=== PATIENT | male | born 1955 | race Native Hawaiian/Other Pacific Islander ===

== ENCOUNTER 2017-04-29 18:19 | Observation (INO) | payer MEDICAID ==
[2017-04-29 18:25] VITALS: BP 133/74; PULSE 105; RESP 98; TEMP 98.5; O2SAT 98
[2017-04-29 19:41] LABS: BASO % 0.2 % (0.0-2.0); EOS # 0.2 K/uL (0.0-0.7); EOS % 2.7 % (0.0-4.0); HEMATOCRIT 45.8 % (35.0-51.0); LYMPH # 2.6 K/uL (1.0-4.3); LYMPH % 38.2 % (20.0-40.0); MEAN CORPUSCULAR HEMOGLOBIN 34.2 pg (27.0-31.0); MEAN CORPUSCULAR HGB CONC 34.6 g/dL (33.0-37.0); MEAN PLATELET VOLUME 7.6 fl (7.2-11.7); MONO # 0.5 K/uL (0.0-0.8); MONO % 7.1 % (0.0-10.0); NEUT # 3.5 K/uL (1.8-7.0); NEUT % 51.8 % (50.0-75.0); NRBC % 0.1 % (0.0-0.0); RED CELL DISTRIBUTION WIDTH 13.3 % (11.5-14.5); WHITE BLOOD COUNT 6.8 K/uL (4.8-10.8)
[2017-04-29 19:51] LABS: ALB/GLOB RATIO 1.1 (1.0-2.1); ALCOHOL SERUM 247 mg/dl (0-10); ALKALINE PHOSPHATASE 82 U/L (38-126); ALT/SGPT 28 U/L (21-72); AST/SGOT 36 U/L (17-59); BILIRUBIN,TOTAL 0.5 mg/dl (0.2-1.3); BLOOD UREA NITROGEN 10 mg/dl (9-20); CALCIUM 9.1 mg/dL (8.4-10.2); CARBON DIOXIDE 23 mmol/L (22-30); CHLORIDE 101 mmol/L (98-107); GFR AFRICAN-AMERICAN > 60; GLUCOSE,RANDOM 145 mg/dL (75-110); POTASSIUM 4.3 MMOL/L (3.6-5.0); SODIUM 141 mmol/l (132-148); TOTAL PROTEIN 9.6 G/DL (6.3-8.2)
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
--- NOTE | 2017-04-30 00:45 | ED PDOC ---
- Laboratory Results Result Diagrams: 04/29/17 19:25 04/29/17 19:25 - ECG O2 Sat by Pulse Oximetry: 98 Pulse Ox Interpretation: Normal Medical Decision Making Medical Decision Makin:00 Patient is signed out to me by Betsy Marley MD pending sobriety, reevaluation, and final disposition. 300 Patient awake alert, walking with steady gait, daughter at bedside to take patient home. Scribe Attestation: Documented by Monica Leblanc, acting as a scribe for Rj Lombardi MD. Provider Scribe Attestation: All medical record entries made by the Scribe were at my direction and personally dictated by me. I have reviewed the chart and agree that the record accurately reflects my personal performance of the history, physical exam, medical decision making, and the department course for this patient. I have also personally directed, reviewed, and agree with the discharge instructions and disposition. Disposition - Clinical Impression Clinical Impression: Alcohol abuse - POA Present On Arrival: None - Disposition Disposition: Routine/Home Disposition Time: 03:00 Condition: IMPROVED
[2017-04-30] MEDS ORDERED: Albuterol-Ipratrop 3 mg / 0.5 (3 ml) UD INH STA (01:30)
== END 2017-04-30 03:04 | disposition home or self-care (01) ==
LOC: H.ER 18:19 → H.EROBSV 19:23
PROVIDERS: ADMIT Emergency Medicine; ATTEND Emergency Medicine
DX: F10.129 Alcohol abuse with intoxication, unspecified (principal); Y90.8 Blood alcohol level of 240 mg/100 ml or more; J44.9 Chronic obstructive pulmonary disease, unspecified; F17.200 Nicotine dependence, unspecified, uncomplicated

== ENCOUNTER 2018-05-19 08:12 | Observation (INO) | payer MEDICAID, MEDICARE ==
[2018-05-19 08:23] VITALS: BMI 20.2
[2018-05-19] MEDS ORDERED: Albuterol-Ipratrop 3 mg / 0.5 (3 ml) UD ONE ×2 (08:57)
[2018-05-19] MEDS ORDERED: Albuterol-Ipratrop 3 mg / 0.5 (3 ml) UD INH STA ×3 (09:03→09:06)
[2018-05-19] MEDS ORDERED: Sodium Chloride 0.9% 1,000 ML IV STA (09:06)
[2018-05-19] MEDS ORDERED: cefTRIAXone (Rocephin) 1 gm Inj ONE (09:18)
[2018-05-19 09:20] LABS: VENOUS BLOOD GAS BASE EXCESS 4.2 mmol/L (0.0-2.0); VENOUS BLOOD GAS PCO2 40 mmHg (40-60); VENOUS BLOOD GAS PO2 29 mm/Hg (30-55); VENOUS BLOOD PH 7.46 (7.32-7.43)
[2018-05-19 09:51] LABS: BASO % 0.5 % (0.0-2.0); EOS # 0.1 K/uL (0.0-0.7); EOS % 1.1 % (0.0-4.0); HEMOGLOBIN 15.5 g/dL (12.0-18.0); LYMPH # 2.2 K/uL (1.0-4.3); LYMPH % 21.6 % (20.0-40.0); MEAN CELL VOLUME 101.4 fl (80.0-94.0); MEAN CORPUSCULAR HEMOGLOBIN 35.1 pg (27.0-31.0); MEAN CORPUSCULAR HGB CONC 34.6 g/dL (33.0-37.0); MEAN PLATELET VOLUME 9.1 fl (7.2-11.7); MONO # 1.6 K/uL (0.0-0.8); MONO % 16.2 % (0.0-10.0); NEUT # 6.1 K/uL (1.8-7.0); NEUT % 60.6 % (50.0-75.0); NRBC % 0.2 % (0.0-0.0); RBC 4.42 Mil/uL (4.40-5.90); RED CELL DISTRIBUTION WIDTH 13.6 % (11.5-14.5)
[2018-05-19 09:59] LABS: ALB/GLOB RATIO 0.9 (1.0-2.1); ALBUMIN 4.5 g/dL (3.5-5.0); ALT/SGPT 25 U/L (21-72); AST/SGOT 39 U/L (17-59); BLOOD UREA NITROGEN 13 mg/dl (9-20); CALCIUM 9.6 mg/dL (8.4-10.2); GFR AFRICAN-AMERICAN > 60; GFR NON-AFRICAN AMERICAN > 60
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
--- NOTE | 2018-05-19 10:21 | RAD ---
HISTORY: [email or web address] COMPARISON: Chest radiographs 07/17/2015. TECHNIQUE: Chest PA and lateral FINDINGS: LUNGS: Fibrotic strands are reiterated at the left base without significant change taking differences in technique into account. Left lesser pleural thickening in calcification are reiterated as well. No acute infiltrate bilaterally. Trace scarring at the right base is noted. PLEURA: No significant pleural effusion identified. No pneumothorax apparent. CARDIOVASCULAR: Normal. OSSEOUS STRUCTURES: No significant abnormalities. VISUALIZED UPPER ABDOMEN: Normal. OTHER FINDINGS: None. IMPRESSION: Sclerotic changes are reiterated at the left base including partial calcification and thickening of the pleura. Trace right basilar fibrotic changes reiterated as well. No acute infiltrate pleural effusion or pneumothorax identified bilaterally.
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
[2018-05-19] MEDS ORDERED: Albuterol-Ipratrop 3 mg / 0.5 (3 ml) UD INH SCH (13:45)
[2018-05-19] MEDS ORDERED: Sodium Chloride 3% for Inhalation 4 ML VIAL.NEB IH PRN (14:32)
[2018-05-19] MEDS: levoFLOXacin 750 MG TAB PO SCH (15:00)
[2018-05-19] MEDS: Sodium Chloride 0.9% 1,000 ML IV SCH (15:00)
[2018-05-19] MEDS: Albuterol-Ipratrop 3 mg / 0.5 (3 ml) UD INH SCH ×3 (15:59→19:32)
[2018-05-19] MEDS ORDERED: methylPREDNISolone 60 MG in Sodium Chloride 0.9% 50 ML IVPB SCH (17:00)
[2018-05-19] MEDS: Lactobacillus Acidophilus 500 MU Cap PO SCH (18:34)
[2018-05-20] MEDS: Albuterol-Ipratrop 3 mg / 0.5 (3 ml) UD INH SCH ×6 (00:08→19:07)
[2018-05-20] MEDS: Sodium Chloride 0.9% 1,000 ML IV SCH (03:00)
[2018-05-20 07:21] LABS: HEMOGLOBIN 13.1 g/dL (12.0-18.0); LYMPH # 0.7 K/uL (1.0-4.3); LYMPH % 8.4 % (20.0-40.0); MEAN CELL VOLUME 102.3 fl (80.0-94.0); MEAN CORPUSCULAR HEMOGLOBIN 34.6 pg (27.0-31.0); MEAN CORPUSCULAR HGB CONC 33.8 g/dL (33.0-37.0); MEAN PLATELET VOLUME 8.5 fl (7.2-11.7); MONO # 0.3 K/uL (0.0-0.8); MONO % 3.6 % (0.0-10.0); NEUT # 7.2 K/uL (1.8-7.0); NRBC % 0.1 % (0.0-0.0); PLATELET COUNT 265 K/uL (130-400); RBC 3.78 Mil/uL (4.40-5.90); RED CELL DISTRIBUTION WIDTH 13.6 % (11.5-14.5); WHITE BLOOD COUNT 8.2 K/uL (4.8-10.8)
[2018-05-20 07:27] LABS: ALB/GLOB RATIO 0.9 (1.0-2.1); ALBUMIN 3.8 g/dL (3.5-5.0); ALT/SGPT 20 U/L (21-72); AST/SGOT 29 U/L (17-59); BLOOD UREA NITROGEN 11 mg/dl (9-20); CALCIUM 9.1 mg/dL (8.4-10.2); GFR AFRICAN-AMERICAN > 60; GFR NON-AFRICAN AMERICAN > 60
[2018-05-20] MEDS: Lactobacillus Acidophilus 500 MU Cap PO SCH ×2 (08:44→17:07)
[2018-05-20] MEDS: levoFLOXacin 750 MG TAB PO SCH (08:45)
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
[2018-05-20 11:40] LABS: BANDS 2 % (0-2); LYMPHOCYTE 9 % (20-50); MONOCYTE 2 % (0-10); NEUTROPHIL 87 % (42-75); PLATELET ESTIMATE NORMAL (NORMAL); TOTAL CELLS COUNTED 100
[2018-05-20 19:16] LABS: FOLATE 12.2 ng/mL
[2018-05-20] MEDS ORDERED: Enoxaparin 40 mg Syringe SC SCH (22:00)
[2018-05-21] MEDS: Albuterol-Ipratrop 3 mg / 0.5 (3 ml) UD INH SCH ×5 (00:40→15:06)
[2018-05-21 04:57] VITALS: RESP 18
[2018-05-21 05:45] LABS: BASO % 0.1 % (0.0-2.0); HEMOGLOBIN 12.9 g/dL (12.0-18.0); LYMPH # 0.8 K/uL (1.0-4.3); LYMPH % 5.9 % (20.0-40.0); MEAN CELL VOLUME 102.3 fl (80.0-94.0); MEAN CORPUSCULAR HEMOGLOBIN 34.4 pg (27.0-31.0); MEAN CORPUSCULAR HGB CONC 33.6 g/dL (33.0-37.0); MEAN PLATELET VOLUME 8.5 fl (7.2-11.7); MONO # 0.5 K/uL (0.0-0.8); MONO % 3.5 % (0.0-10.0); NEUT # 11.9 K/uL (1.8-7.0); NEUT % 90.5 % (50.0-75.0); PLATELET COUNT 274 K/uL (130-400); RBC 3.74 Mil/uL (4.40-5.90); RED CELL DISTRIBUTION WIDTH 13.7 % (11.5-14.5); WHITE BLOOD COUNT 13.2 K/uL (4.8-10.8)
[2018-05-21 06:14] LABS: BLOOD UREA NITROGEN 14 mg/dl (9-20); CALCIUM 9.3 mg/dL (8.4-10.2); GFR AFRICAN-AMERICAN > 60; GFR NON-AFRICAN AMERICAN > 60
[2018-05-21] MEDS ORDERED: Potassium Chloride 20 mEq ER Tab PO STA (06:28)
[2018-05-21] MEDS: levoFLOXacin 750 MG TAB PO SCH (08:19)
[2018-05-21] MEDS: Lactobacillus Acidophilus 500 MU Cap PO SCH (08:19)
--- NOTE | 2018-05-21 09:12 | CP.PCM.DIS ---
Provider - Provider Date of Admission: 05/19/18 12:01 Attending physician: Karen Zhu MD Time Spent in preparation of Discharge (in minutes): 20 Hospital Course - Lab Results Lab Results: Micro Results 05/19/18 13:18 Blood Blood Culture - Preliminary NO GROWTH AFTER 24 HOURS 05/19/18 13:18 Blood Blood Culture - Preliminary NO GROWTH AFTER 24 HOURS Most Recent Lab Values WBC 13.2 K/uL (4.8-10.8) H D 05/21/18 04:20 RBC 3.74 Mil/uL (4.40-5.90) L 05/21/18 04:20 Hgb 12.9 g/dL (12.0-18.0) 05/21/18 04:20 Hct 38.3 % (35.0-51.0) 05/21/18 04:20 MCV 102.3 fl (80.0-94.0) H 05/21/18 04:20 MCH 34.4 pg (27.0-31.0) H 05/21/18 04:20 MCHC 33.6 g/dL (33.0-37.0) 05/21/18 04:20 RDW 13.7 % (11.5-14.5) 05/21/18 04:20 Plt Count 274 K/uL (130-400) 05/21/18 04:20 MPV 8.5 fl (7.2-11.7) 05/21/18 04:20 Neut % (Auto) 90.5 % (50.0-75.0) H 05/21/18 04:20 Lymph % (Auto) 5.9 % (20.0-40.0) L 05/21/18 04:20 [place] % (Auto) 3.5 % (0.0-10.0) 05/21/18 04:20 Eos % (Auto) 0.0 % (0.0-4.0) 05/21/18 04:20 Baso % (Auto) 0.1 % (0.0-2.0) 05/21/18 04:20 Neut # (Auto) 11.9 K/uL (1.8-7.0) H 05/21/18 04:20 Lymph # (Auto) 0.8 K/uL (1.0-4.3) L 05/21/18 04:20 Benson # (Auto) 0.5 K/uL (0.0-0.8) 05/21/18 04:20 Eos # (Auto) 0.0 K/uL (0.0-0.7) 05/21/18 04:20 Baso # (Auto) 0.0 K/uL (0.0-0.2) 05/21/18 04:20 Neutrophils % (Manual) 87 % (42-75) H 05/20/18 07:00 Band Neutrophils % 2 % (0-2) 05/20/18 07:00 Lymphocytes % (Manual) 9 % (20-50) L 05/20/18 07:00 Monocytes % (Manual) 2 % (0-10) 05/20/18 07:00 Platelet Estimate Normal (NORMAL) 05/20/18 07:00 Macrocytosis (manual) Slight 05/20/18 07:00 pO2 29 mm/Hg (30-55) L 05/19/18 09:13 VBG pH 7.46 (7.32-7.43) H 05/19/18 09:13 VBG pCO2 40 mmHg (40-60) 05/19/18 09:13 VBG HCO3 27.1 mmol/L 05/19/18 09:13 VBG Total CO2 29.6 mmol/L (22-28) H 05/19/18 09:13 VBG O2 Sat (Calc) 63.9 % (40-65) 05/19/18 09:13 VBG Base Excess 4.2 mmol/L (0.0-2.0) H 05/19/18 09:13 Sodium 183.0 mmol/L (132-148) H* 05/19/18 09:13 Chloride 115.0 mmol/L (98-107) H 05/19/18 09:13 Glucose 102 mg/dL (75-110) 05/19/18 09:13 Lactate 1.6 mmol/L (0.7-2.1) 05/19/18 09:13 FiO2 21.0 % 05/19/18 09:13 Blood Gas Comments Vbg/ra21% 05/19/18 09:13 Crit Value Called To Jessika granados 05/19/18 09:13 Crit Value Called By Pam 05/19/18 09:13 Crit Value Read Back Y 05/19/18 09:13 Blood Gas Notified Time 919 05/19/18 09:13 Sodium 140 mmol/l (132-148) 05/21/18 04:20 Potassium 3.5 MMOL/L (3.6-5.0) L 05/21/18 04:20 Chloride 103 mmol/L (98-107) 05/21/18 04:20 Carbon Dioxide 29 mmol/L (22-30) 05/21/18 04:20 Anion Gap 12 (10-20) 05/21/18 04:20 BUN 14 mg/dl (9-20) 05/21/18 04:20 Creatinine 0.8 mg/dl (0.8-1.5) 05/21/18 04:20 Est GFR ( Amer) > 60 05/21/18 04:20 Est GFR (Non-Af Amer) > 60 05/21/18 04:20 Random Glucose 160 mg/dL (75-110) H 05/21/18 04:20 Calcium 9.3 mg/dL (8.4-10.2) 05/21/18 04:20 Total Bilirubin 0.4 mg/dl (0.2-1.3) 05/20/18 07:00 AST 29 U/L (17-59) 05/20/18 07:00 ALT 20 U/L (21-72) L 05/20/18 07:00 Alkaline Phosphatase 67 U/L (38-126) 05/20/18 07:00 Total Protein 8.0 G/DL (6.3-8.2) 05/20/18 07:00 Albumin 3.8 g/dL (3.5-5.0) 05/20/18 07:00 Globulin 4.2 gm/dL (2.2-3.9) H 05/20/18 07:00 Albumin/Globulin Ratio 0.9 (1.0-2.1) L 05/20/18 07:00 Vitamin B12 > 1000 pg/mL (239-931) H 05/20/18 07:00 Folate 12.2 ng/mL 05/20/18 07:00 - Hospital Course Hospital Course: 63 YO Male with PMHx of COPD, asbestos, TB treated, drug/ETOH abuse admitted for moderate COPD exacerbation. Pt was treated with PO abx, steroids and inhalers. Over the course of the admission, respiratory symptoms have resolved, pt is breathing comfortably in room air, tolerating PO diet and ambulating. Pt will be d/c home with follow up in [facility] on 05/25/18 @ 10:[address] Valerio. Cont meds: Ventolin Inh Cyanocobalamin (Vitamin B12 1000 Mcg Tab) 1,000 mcg PO DAILY MARYSOL Folic Acid (Folic Acid) 1 mg PO DAILY MARYSOL Levofloxacin (Levaquin) 750 mg PO DAILY MARYSOL x 5 more days Methylprednisolone (Solu-Medrol) 60 mg IV daily x 3 more days Spiriva inh Discharge Exam - Head Exam Head Exam: NORMAL INSPECTION Additional comments: old trach scar noted, healed well [place] huge to skin in chest - Eye Exam Eye Exam: EOMI - ENT Exam ENT Exam: Mucous Membranes Moist - Respiratory Exam Respiratory Exam: Clear to PA & Lateral, NORMAL BREATHING PATTERN. absent: Wheezes - Cardiovascular Exam Cardiovascular Exam: REGULAR RHYTHM, +S1, +S2 - GI/Abdominal Exam GI & Abdominal Exam: Normal Bowel Sounds. absent: Soft, Tenderness - Extremities Exam Extremities exam: full ROM, normal inspection - Back Exam Back exam: NORMAL INSPECTION - Neurological Exam Neurological exam: Alert, Oriented x3 - Psychiatric Exam Psychiatric exam: Normal Affect, Normal Mood - Skin Skin Exam: Dry, Intact Discharge Plan - Discharge Medications Prescriptions: Albuterol Sulfate [Ventolin Hfa] 18 gm INH PRN PRN #1 [id number] PRN Reason: Shortness Of Breath Cyanocobalamin [Vitamin B12 1000 mcg Tab] 1,000 mcg PO DAILY #30 tab Folic Acid 1 mg PO DAILY #30 tab levoFLOXacin [Levaquin] 750 mg PO DAILY 5 Days #5 tab Methylprednisolone [Medrol] 40 mg PO DAILY #3 tablet Tiotropium [place] Inhaler [Spiriva Inhalation Handihaler Device] 1 inhaler PO DAILY 30 Days #1 inhaler - Follow Up Plan Condition: FAIR Disposition: HOME/ ROUTINE Patient education suggested?: Yes Instructions: Exacerbation of COPD (DC), Medicines for Chronic Obstructive Pulmonary Disease (COPD), Risk Factors for COPD Additional Instructions: Follow up in [facility] on 05/25/18 @10:20 Dr. Valerio. Referrals: [facility] [Outside]
[2018-05-21 10:42] LABS: LYMPHOCYTE 7 % (20-50); MONOCYTE 3 % (0-10); NEUTROPHIL 90 % (42-75); PLATELET ESTIMATE NORMAL (NORMAL); TOTAL CELLS COUNTED 100
[2018-05-21 10:43] LABS: ANISOCYTOSIS SLIGHT
[2018-05-21 10:44] LABS: LARGE PLATELETS PRESENT; OVALOCYTES SLIGHT
[2018-05-21 11:59] VITALS: BP 138/69; PULSE 90; TEMP 98.4; O2SAT 98
== END 2018-05-21 15:00 | disposition home or self-care (01) ==
LOC: H.ER 08:12 → H.ERHOLD 12:01 → H.TEL 14:05
PROVIDERS: ADMIT Family Medicine; ATTEND Family Medicine
DX: J44.1 Chronic obstructive pulmonary disease with (acute) exacerbation (principal); Z91.19 Patient's noncompliance with other medical treatment and regimen; Z72.0 Tobacco use; Z77.090 Contact with and (suspected) exposure to asbestos; Z86.11 Personal history of tuberculosis
CPT/HCPCS: 36415; 71046; 80048; 80053; 82607; 82746; 82803; 85025; 87040; 94640; 96374; 99285; G0378; J0696; J1650; J2930; J7030